=== PATIENT | male | born 1960 | race Caucasian/White ===

== ENCOUNTER 2019-04-01 15:44 | Observation (INO) | payer BC, OTHER ==
[2019-04-01] MEDS ORDERED: FEVERALL 650 MG PR PRN (16:29)
[2019-04-01] MEDS ORDERED: Sodium Chloride 0.9% 1000 ML 1,000 ML IV STA ×2 (16:29→20:05)
[2019-04-01] MEDS ORDERED: NOVOLIN R INSULIN (FOR DRIPS)** 100 UNITS in Sodium Chloride 0.9% 100 ML IVPB 100 ML IV PRN (16:33)
[2019-04-01 16:54] LABS: Hematocrit 39.2 % (42-50); Hemoglobin 13.5 gm/dl (12.5-18.0); Mean Cell Volume 92.2 fl (78-100); Mean Corpuscular Hemoglobin 31.8 pg (26-32); Mean Corpuscular Hgb Concent. 34.4 g/dl (32-36); Mean Platelet Volume 13.9 fl (7.5-11.0); Red Blood Count 4.25 M/mm3 (4.1-5.6); Red Cell Distribution Width 12.9 % (11.5-14.0); White Blood Count 7.8 K/mm3 (4.0-10.5)
[2019-04-01 17:07] LABS: ALBUMIN 4.3 g/dL (3.5-5.0); ANION GAP 20.7 MEQ/L (5-15); Calcium 9.6 mg/dL (8.4-10.2); Creatinine 1 1.7 mg/dL (0.66-1.25); Direct Bilirubin 0.3 mg/dL (0.0-0.4); MAGNESIUM 1.7 mg/dL (1.6-2.3); PHOSPHOROUS 4.6 mg/dL (2.5-4.5); Potassium 5.1 mmol/L (3.5-5.1); Total Protein 7.8 g/dL (6.3-8.2)
[2019-04-01 17:10] LABS: Platelet Count 89 K/mm3 (150-450)
[2019-04-01 18:09] LABS: Appearance CLEAR (CLEAR); Bilirubin NEGATIVE (NEGATIVE); Blood NEGATIVE Ery/ul (0-5); Glucose >=500 mg/dL (NEGATIVE); Ketones NEGATIVE (NEGATIVE); Leukocyte Esterase NEGATIVE (NEGATIVE); Nitrite NEGATIVE (NEGATIVE); Protein,Urine Dip NEGATIVE (Negative); Specific Gravity 1.021 (1.005-1.025); Urobilinogen NEGATIVE mg/dL (0-1)
[2019-04-01] MEDS ORDERED: Sodium Chloride 0.9% 1000 ML 1,000 ML IV SCH (18:45)
[2019-04-01] MEDS: Coreg 6.25 MG PO SCH (21:59)
[2019-04-01] MEDS: NEURONTIN 300 MG PO SCH (22:00)
[2019-04-01] MEDS ORDERED: ZOCOR 20MG PO SCH (22:00)
[2019-04-01] MEDS ORDERED: NON-FORMULARY ITEM (Apixaban [Eliquis] 5 MG) PO SCH (22:00)
[2019-04-01] MEDS: ELIQUIS 2.5 MG TABLET PO SCH (22:00)
[2019-04-01] MEDS ORDERED: TYLENOL 325 MG PO PRN (22:05)
--- NOTE | 2019-04-01 22:06 | XRAY ---
Indication: Weakness. Elevated blood sugar. Comparison: July 23, 2007. PA/lateral chest again demonstrates cardiomegaly with new left-sided single lead pacemaker. Lungs again demonstrates a few right lung calcified granulomas. No focal infiltrate, consolidation, or large effusion. Bony thorax again demonstrates mild osteopenia and degenerative changes. Interval left shoulder arthroplasty and old distal left humerus fracture. Impression: Nonacute chest with chronic features. Comment: Preliminary interpretation was made by [facility]. No critical discrepancy.
[2019-04-02 01:10] LABS: ANION GAP 13.3 MEQ/L (5-15); Creatinine 1 1.77 mg/dL (0.66-1.25); Potassium 4.3 mmol/L (3.5-5.1)
[2019-04-02] MEDS ORDERED: D5W/0.45NS W/ 20mEq KCl 1000 ML 1,000 ML IV SCH (01:30)
[2019-04-02] MEDS ORDERED: Lantus Insulin SQ ONE ×2 (01:30→10:00)
[2019-04-02] MEDS ORDERED: HUMALOG SQ PRN (01:36)
--- NOTE | 2019-04-02 07:52 | PCM.HP.ADD ---
Addendum to History & Physical - History & Physical Addendum Addendum to History & Physical: This certifies that the History & Physical in the electronic chart reflects the current health status of the patient. If there are changes in the H&P these changes/exceptions are listed as follows.
--- NOTE | 2019-04-02 08:00 | PCM.NOTE ---
Date and Time: 04/02/19 0759 Subjective Assessment: doing better - Review of Systems Constitutional: No Fever, No Chills Eyes: No Symptoms Ears, Nose, & Throat: No Symptoms Respiratory: No Cough, No Short Of Breath Cardiac: No Chest Pain, No Edema, No Syncope Abdominal/Gastrointestinal: No Abdominal Pain, No Nausea, No Vomiting, No Diarrhea Genitourinary Symptoms: No Dysuria Musculoskeletal: No Back Pain, No Neck Pain Skin: No Rash Neurological: No Dizziness, No Focal Weakness, No Sensory Changes Psychological: No Symptoms Endocrine: No Symptoms Hematologic/Lymphatic: No Symptoms Immunological/Allergic: No Symptoms Objective Exam General Appearance: no apparent distress, alert Neurologic Exam: alert, oriented x 3, cooperative, normal mood/affect, nml cerebellar function, sensation nml, No motor deficits Skin Exam: normal color, warm, dry Eye Exam: PERRL, EOMI, eyes nml inspection Ears, Nose, Throat Exam: normal ENT inspection, pharynx normal, moist mucous membranes Neck Exam: normal inspection, non-tender, supple, full range of motion Respiratory Exam: normal breath sounds, lungs clear, No respiratory distress Cardiovascular Exam: regular rate/rhythm, normal heart sounds Gastrointestinal/Abdomen Exam: soft, No tenderness, No mass Extremity Exam: normal inspection, normal range of motion Back Exam: normal inspection, normal range of motion, No CVA tenderness, No vertebral tenderness Male Genitalia Exam: deferred Rectal Exam: deferred OBJECTIVE DATA Vital Signs: Vital Signs - 24 hr Temp Pulse Resp BP Pulse Ox 04/02/19 07:10 97.8 F 82 20 96/69 82 L 04/02/19 04:00 98.2 F 72 13 112/93 99 04/02/19 02:56 98 04/02/19 00:06 97.7 F 64 14 92/56 95 04/01/19 23:55 66 04/01/19 21:00 70 95/64 04/01/19 20:46 77 16 98 04/01/19 20:43 98 04/01/19 20:00 97.4 F 74 14 70/58 95 04/01/19 17:32 97.7 F 77 15 126/86 97 04/01/19 17:14 94 L Pain Assessment - Last Documented Pain Intensity 0 Pain Scale Used 0-10 Pain Scale,FLACC Intake and Output: Intake & Output 03/30/19 03/31/19 04/01/19 04/02/19 11:59 11:59 11:59 11:59 Intake Total 3806 Output Total 1300 Balance 2506 Weight 160.7 kg Lab Results: Accuchecks Date 04/02/19 Time 03:59 Accucheck Value: 154 Lab Results-Last 24 Hours 04/01/19 04/01/19 04/01/19 Range/Units 16:45 16:45 16:45 WBC 7.8 (4.0-10.5) K/mm3 RBC 4.25 (4.1-5.6) M/mm3 Hgb 13.5 (12.5-18.0) gm/dl Hct 39.2 L (42-50) % MCV 92.2 (78-100) fl MCH 31.8 (26-32) pg MCHC 34.4 (32-36) g/dl RDW 12.9 (11.5-14.0) % Plt Count 89 L (150-450) K/mm3 MPV 13.9 H (7.5-11.0) fl Sodium 128 L (137-145) mmol/L Potassium 5.1 (3.5-5.1) mmol/L Chloride 89 L (98-107) mmol/L Carbon Dioxide 24 (22-30) mmol/L Anion Gap 20.7 H (5-15) MEQ/L BUN 42 H (9-20) mg/dL Creatinine 1.70 H (0.66-1.25) mg/dL Estimated GFR 44.4 ML/MIN Glucose 696 H* 696 H* (74-106) mg/dL Hemoglobin A1c (4.5-6.0) % Calcium 9.6 (8.4-10.2) mg/dL Phosphorus 4.6 H (2.5-4.5) mg/dL Magnesium 1.7 (1.6-2.3) mg/dL Total Bilirubin 2.00 H (0.2-1.3) mg/dL Direct Bilirubin 0.3 (0.0-0.4) mg/dL AST 18 (17-59) U/L ALT 14 (0-50) U/L Alkaline Phosphatase 105 (38-126) U/L Serum Total Protein 7.8 (6.3-8.2) g/dL Albumin 4.3 (3.5-5.0) g/dL Urine Color (YELLOW) Urine Appearance (CLEAR) Urine pH (5-6) Ur Specific [place] (1.005-1.025) Urine Protein (Negative) Urine Ketones (NEGATIVE) Urine Blood (0-5) Bipin/ul Urine Nitrite (NEGATIVE) Urine Bilirubin (NEGATIVE) Urine Urobilinogen (0-1) mg/dL Ur Leukocyte Esterase (NEGATIVE) Urine WBC (Auto) (0-5) /HPF Urine RBC (Auto) (0-2) /HPF U Epithel Cells (Auto) (FEW) /HPF Urine Bacteria (Auto) (NEGATIVE) /HPF Urine Culture Reflexed (NO) Urine Glucose (NEGATIVE) mg/dL 04/01/19 04/01/19 04/01/19 Range/Units 16:45 18:03 18:12 WBC (4.0-10.5) K/mm3 RBC (4.1-5.6) M/mm3 Hgb (12.5-18.0) gm/dl Hct (42-50) % MCV (78-100) fl MCH (26-32) pg MCHC (32-36) g/dl RDW (11.5-14.0) % Plt Count (150-450) K/mm3 MPV (7.5-11.0) fl Sodium (137-145) mmol/L Potassium (3.5-5.1) mmol/L Chloride (98-107) mmol/L Carbon Dioxide (22-30) mmol/L Anion Gap (5-15) MEQ/L BUN (9-20) mg/dL Creatinine (0.66-1.25) mg/dL Estimated GFR ML/MIN Glucose 619 H* (74-106) mg/dL Hemoglobin A1c > 14.00 H (4.5-6.0) % Calcium (8.4-10.2) mg/dL Phosphorus (2.5-4.5) mg/dL Magnesium (1.6-2.3) mg/dL Total Bilirubin (0.2-1.3) mg/dL Direct Bilirubin (0.0-0.4) mg/dL AST (17-59) U/L ALT (0-50) U/L Alkaline Phosphatase (38-126) U/L Serum Total Protein (6.3-8.2) g/dL Albumin (3.5-5.0) g/dL Urine Color STRAW (YELLOW) Urine Appearance CLEAR (CLEAR) Urine pH 5.0 (5-6) Ur Specific [place] 1.021 (1.005-1.025) Urine Protein NEGATIVE (Negative) Urine Ketones NEGATIVE (NEGATIVE) Urine Blood NEGATIVE (0-5) Bipin/ul Urine Nitrite NEGATIVE (NEGATIVE) Urine Bilirubin NEGATIVE (NEGATIVE) Urine Urobilinogen NEGATIVE (0-1) mg/dL Ur Leukocyte Esterase NEGATIVE (NEGATIVE) Urine WBC (Auto) NONE (0-5) /HPF Urine RBC (Auto) NONE (0-2) /HPF U Epithel Cells (Auto) NONE (FEW) /HPF Urine Bacteria (Auto) NONE (NEGATIVE) /HPF Urine Culture Reflexed NO (NO) Urine Glucose >=500 (NEGATIVE) mg/dL 04/01/19 04/01/19 04/01/19 Range/Units 19:09 20:12 21:02 WBC (4.0-10.5) K/mm3 RBC (4.1-5.6) M/mm3 Hgb (12.5-18.0) gm/dl Hct (42-50) % MCV (78-100) fl MCH (26-32) pg MCHC (32-36) g/dl RDW (11.5-14.0) % Plt Count (150-450) K/mm3 MPV (7.5-11.0) fl Sodium (137-145) mmol/L Potassium (3.5-5.1) mmol/L Chloride (98-107) mmol/L Carbon Dioxide (22-30) mmol/L Anion Gap (5-15) MEQ/L BUN (9-20) mg/dL Creatinine (0.66-1.25) mg/dL Estimated GFR ML/MIN Glucose 513 H* 374 H 259 H (74-106) mg/dL Hemoglobin A1c (4.5-6.0) % Calcium (8.4-10.2) mg/dL Phosphorus (2.5-4.5) mg/dL Magnesium (1.6-2.3) mg/dL Total Bilirubin (0.2-1.3) mg/dL Direct Bilirubin (0.0-0.4) mg/dL AST (17-59) U/L ALT (0-50) U/L Alkaline Phosphatase (38-126) U/L Serum Total Protein (6.3-8.2) g/dL Albumin (3.5-5.0) g/dL Urine Color (YELLOW) Urine Appearance (CLEAR) Urine pH (5-6) Ur Specific [place] (1.005-1.025) Urine Protein (Negative) Urine Ketones (NEGATIVE) Urine Blood (0-5) Bipin/ul Urine Nitrite (NEGATIVE) Urine Bilirubin (NEGATIVE) Urine Urobilinogen (0-1) mg/dL Ur Leukocyte Esterase (NEGATIVE) Urine WBC (Auto) (0-5) /HPF Urine RBC (Auto) (0-2) /HPF U Epithel Cells (Auto) (FEW) /HPF Urine Bacteria (Auto) (NEGATIVE) /HPF Urine Culture Reflexed (NO) Urine Glucose (NEGATIVE) mg/dL 04/01/19 04/01/19 04/02/19 Range/Units 22:00 23:10 00:56 WBC (4.0-10.5) K/mm3 RBC (4.1-5.6) M/mm3 Hgb (12.5-18.0) gm/dl Hct (42-50) % MCV (78-100) fl MCH (26-32) pg MCHC (32-36) g/dl RDW (11.5-14.0) % Plt Count (150-450) K/mm3 MPV (7.5-11.0) fl Sodium 132 L (137-145) mmol/L Potassium 4.3 (3.5-5.1) mmol/L Chloride 96 L (98-107) mmol/L Carbon Dioxide 26 (22-30) mmol/L Anion Gap 13.3 (5-15) MEQ/L BUN 43 H (9-20) mg/dL Creatinine 1.77 H (0.66-1.25) mg/dL Estimated GFR 42.4 ML/MIN Glucose 278 H 292 H 245 H (74-106) mg/dL Hemoglobin A1c (4.5-6.0) % Calcium 9.0 (8.4-10.2) mg/dL Phosphorus (2.5-4.5) mg/dL Magnesium (1.6-2.3) mg/dL Total Bilirubin (0.2-1.3) mg/dL Direct Bilirubin (0.0-0.4) mg/dL AST (17-59) U/L ALT (0-50) U/L Alkaline Phosphatase (38-126) U/L Serum Total Protein (6.3-8.2) g/dL Albumin (3.5-5.0) g/dL Urine Color (YELLOW) Urine Appearance (CLEAR) Urine pH (5-6) Ur Specific [place] (1.005-1.025) Urine Protein (Negative) Urine Ketones (NEGATIVE) Urine Blood (0-5) Bipin/ul Urine Nitrite (NEGATIVE) Urine Bilirubin (NEGATIVE) Urine Urobilinogen (0-1) mg/dL Ur Leukocyte Esterase (NEGATIVE) Urine WBC (Auto) (0-5) /HPF Urine RBC (Auto) (0-2) /HPF U Epithel Cells (Auto) (FEW) /HPF Urine Bacteria (Auto) (NEGATIVE) /HPF Urine Culture Reflexed (NO) Urine Glucose (NEGATIVE) mg/dL 04/02/19 04/02/19 Range/Units 02:13 03:25 WBC (4.0-10.5) K/mm3 RBC (4.1-5.6) M/mm3 Hgb (12.5-18.0) gm/dl Hct (42-50) % MCV (78-100) fl MCH (26-32) pg MCHC (32-36) g/dl RDW (11.5-14.0) % Plt Count (150-450) K/mm3 MPV (7.5-11.0) fl Sodium (137-145) mmol/L Potassium (3.5-5.1) mmol/L Chloride (98-107) mmol/L Carbon Dioxide (22-30) mmol/L Anion Gap (5-15) MEQ/L BUN (9-20) mg/dL Creatinine (0.66-1.25) mg/dL Estimated GFR ML/MIN Glucose 179 H 135 H (74-106) mg/dL Hemoglobin A1c (4.5-6.0) % Calcium (8.4-10.2) mg/dL Phosphorus (2.5-4.5) mg/dL Magnesium (1.6-2.3) mg/dL Total Bilirubin (0.2-1.3) mg/dL Direct Bilirubin (0.0-0.4) mg/dL AST (17-59) U/L ALT (0-50) U/L Alkaline Phosphatase (38-126) U/L Serum Total Protein (6.3-8.2) g/dL Albumin (3.5-5.0) g/dL Urine Color (YELLOW) Urine Appearance (CLEAR) Urine pH (5-6) Ur Specific [place] (1.005-1.025) Urine Protein (Negative) Urine Ketones (NEGATIVE) Urine Blood (0-5) Bipin/ul Urine Nitrite (NEGATIVE) Urine Bilirubin (NEGATIVE) Urine Urobilinogen (0-1) mg/dL Ur Leukocyte Esterase (NEGATIVE) Urine WBC (Auto) (0-5) /HPF Urine RBC (Auto) (0-2) /HPF U Epithel Cells (Auto) (FEW) /HPF Urine Bacteria (Auto) (NEGATIVE) /HPF Urine Culture Reflexed (NO) Urine Glucose (NEGATIVE) mg/dL Radiology Exams: Radiology Procedures Category Date Time Status CHEST 2 VIEWS (PA AND LAT) Stat Exams 04/01/19 19:10 Completed Assessment/Plan (1) Diabetic hyperosmolar non-ketotic state Current Visit: Yes Status: Acute Assessment & Plan: Last Vital Signs Temp 97.8 F 04/02/19 07:10 Pulse 82 04/02/19 07:10 Resp 20 04/02/19 07:10 BP 96/69 04/02/19 07:10 Pulse Ox 82 L 04/02/19 07:10 Allergies No Known Drug Allergies Allergy (Unverified 11/19/13 18:09) Active Medications Acetaminophen (Feverall 650 Mg) 650 mg NE Q4H PRN PRN PRN Reason: PAIN AND/OR FEVER Stop: 05/01/19 16:28 Acetaminophen (Tylenol 325 Mg) 650 mg PO Q4H PRN PRN PRN Reason: PAIN AND/OR FEVER Stop: 05/01/19 22:04 Last Admin: 04/01/19 22:07 Dose: 650 mg Amlodipine Besylate (Norvasc 5 Mg) 2.5 mg PO QAM [facility] Stop: 05/02/19 09:59 Apixaban (Eliquis 2.5 Mg Tablet) 5 mg PO BID [facility] Stop: 05/01/19 21:59 Last Admin: 04/01/19 22:00 Dose: 5 mg Carvedilol (Coreg 6.25 Mg) 6.25 mg PO BID [facility] Stop: 05/01/19 21:59 Last Admin: 04/01/19 21:59 Dose: Not Given Ergocalciferol (Vitamin D2) 50,000 unit PO Q7D [facility] Stop: 05/03/19 09:59 Gabapentin (Neurontin 300 Mg) 300 mg PO TID [facility] Stop: 05/01/19 21:59 Last Admin: 04/01/19 22:00 Dose: Not Given Hydrochlorothiazide (Hydrodiuril 25 Mg) 25 mg PO DAILY [facility] Stop: 05/02/19 09:59 Insulin Human Regular 100 (units/ Sodium Chloride) 101 mls @ 16.23 mls/hr IV .Q6H14M PRN; Protocol PRN Reason: DKA/HYPERGYCEMIA Stop: 05/01/19 16:32 Last Titration: 04/02/19 03:58 Dose: 0 units/kg/hr, 0 mls/hr Potassium Chloride/Dextrose/Sod Cl (D5w/0.45ns W/ 20meq Kcl 1000 Ml) 1,000 mls @ 150 mls/hr IV .Q6H40M [facility] Stop: 05/02/19 01:29 Last Admin: 04/02/19 01:29 Dose: 150 mls/hr Insulin Human Lispro (Humalog) 0 unit SQ UD PRN PRN Reason: HYPERGLYCEMIA Stop: 05/02/19 01:35 Lisinopril (Zestril 20 Mg) 40 mg PO DAILY [facility] Stop: 05/02/19 09:59 Simvastatin (Zocor 20mg) 20 mg PO HS [facility] Stop: 05/01/19 21:59 Last Admin: 04/01/19 22:01 Dose: 20 mg Sitagliptin Phosphate (Januvia 50 Mg) 100 mg PO DAILY [facility] Stop: 05/02/19 09:59 Intake & Output 04/01/19 04/02/19 11:59 11:59 Intake Total 3806 Output Total 1300 Balance 2506 Weight 160.7 kg Orders 04/01/19 16:27 Oxygen Oxymizer LPM 2 lpm 04/01/19 16:29 Place in Observation ROUTINE Acetaminophen 650 mg [Feverall 650 mg] 650 mg NE Q4H PRN PRN 04/01/19 16:32 Up Ad Huyen TOLERATED 04/01/19 16:33 NaCl 0.9% 100Ml [Sodium Chloride 0.9% 100 ML IVPB] 100 ml Insulin Reg Human Rec [Novolin R Insulin (For Drips)] 100 units IV 0.1 units/kg/hr 04/01/19 17:14 Pulse Oximetry .continuos 04/01/19 18:22 Dragger Out/Discharge Plan Nutritional Admission Screen 04/01/19 20:45 Respiratory Therapy Assessment ONCE 04/01/19 22:00 Apixaban [Eliquis 2.5 mg Tablet] 5 mg PO BID Carvedilol 6.25 mg [Coreg 6.25 MG] 6.25 mg PO BID Gabapentin 300 mg [Neurontin 300 mg] 300 mg PO TID Simvastatin 20Mg [Zocor 20Mg] 20 mg PO HS 04/01/19 22:05 Acetaminophen 325 mg [Tylenol 325 mg] 650 mg PO Q4H PRN PRN 04/01/19 Dinner 1800 Calorie ADA 04/02/19 10:00 Amlodipine Besylate 5 mg [Norvasc 5 mg] 2.5 mg PO QAM Hydrochlorothiazide 25 mg [hydroDIURIL 25 MG] 25 mg PO DAILY Lisinopril 20 mg [Zestril 20 MG] 40 mg PO DAILY Sitagliptin Phosphate 50 MG [Januvia 50 MG] 100 mg PO DAILY 04/03/19 10:00 Ergocalciferol (Vitamin D2) [Vitamin D2] 50,000 unit PO Q7D Lab Tests 04/01/19 04/01/19 04/01/19 16:45 16:45 16:45 WBC 7.8 RBC 4.25 Hgb 13.5 Hct 39.2 L MCV 92.2 MCH 31.8 MCHC 34.4 RDW 12.9 Plt Count 89 L MPV 13.9 H Sodium 128 L Potassium 5.1 Chloride 89 L Carbon Dioxide 24 Anion Gap 20.7 H BUN 42 H Creatinine 1.70 H Estimated GFR 44.4 Glucose 696 H* 696 H* Hemoglobin A1c Calcium 9.6 Phosphorus 4.6 H Magnesium 1.7 Total Bilirubin 2.00 H Direct Bilirubin 0.3 AST 18 ALT 14 Alkaline Phosphatase 105 Serum Total Protein 7.8 Albumin 4.3 Urine Color Urine Appearance Urine pH Ur Specific [place] Urine Protein Urine Ketones Urine Blood Urine Nitrite Urine Bilirubin Urine Urobilinogen Ur Leukocyte Esterase Urine WBC (Auto) Urine RBC (Auto) U Epithel Cells (Auto) Urine Bacteria (Auto) Urine Culture Reflexed Urine Glucose 04/01/19 04/01/19 04/01/19 16:45 18:03 18:12 WBC RBC Hgb Hct MCV MCH MCHC RDW Plt Count MPV Sodium Potassium Chloride Carbon Dioxide Anion Gap BUN Creatinine Estimated GFR Glucose 619 H* Hemoglobin A1c > 14.00 H Calcium Phosphorus Magnesium Total Bilirubin Direct Bilirubin AST ALT Alkaline Phosphatase Serum Total Protein Albumin Urine Color STRAW Urine Appearance CLEAR Urine pH 5.0 Ur Specific [place] 1.021 Urine Protein NEGATIVE Urine Ketones NEGATIVE Urine Blood NEGATIVE Urine Nitrite NEGATIVE Urine Bilirubin NEGATIVE Urine Urobilinogen NEGATIVE Ur Leukocyte Esterase NEGATIVE Urine WBC (Auto) NONE Urine RBC (Auto) NONE U Epithel Cells (Auto) NONE Urine Bacteria (Auto) NONE Urine Culture Reflexed NO Urine Glucose >=500 04/01/19 04/01/19 04/01/19 19:09 20:12 21:02 WBC RBC Hgb Hct MCV MCH MCHC RDW Plt Count MPV Sodium Potassium Chloride Carbon Dioxide Anion Gap BUN Creatinine Estimated GFR Glucose 513 H* 374 H 259 H Hemoglobin A1c Calcium Phosphorus Magnesium Total Bilirubin Direct Bilirubin AST ALT Alkaline Phosphatase Serum Total Protein Albumin Urine Color Urine Appearance Urine pH Ur Specific [place] Urine Protein Urine Ketones Urine Blood Urine Nitrite Urine Bilirubin Urine Urobilinogen Ur Leukocyte Esterase Urine WBC (Auto) Urine RBC (Auto) U Epithel Cells (Auto) Urine Bacteria (Auto) Urine Culture Reflexed Urine Glucose 04/01/19 04/01/19 04/02/19 22:00 23:10 00:56 WBC RBC Hgb Hct MCV MCH MCHC RDW Plt Count MPV Sodium 132 L Potassium 4.3 Chloride 96 L Carbon Dioxide 26 Anion Gap 13.3 BUN 43 H Creatinine 1.77 H Estimated GFR 42.4 Glucose 278 H 292 H 245 H Hemoglobin A1c Calcium 9.0 Phosphorus Magnesium Total Bilirubin Direct Bilirubin AST ALT Alkaline Phosphatase Serum Total Protein Albumin Urine Color Urine Appearance Urine pH Ur Specific [place] Urine Protein Urine Ketones Urine Blood Urine Nitrite Urine Bilirubin Urine Urobilinogen Ur Leukocyte Esterase Urine WBC (Auto) Urine RBC (Auto) U Epithel Cells (Auto) Urine Bacteria (Auto) Urine Culture Reflexed Urine Glucose 04/02/19 04/02/19 02:13 03:25 WBC RBC Hgb Hct MCV MCH MCHC RDW Plt Count MPV Sodium Potassium Chloride Carbon Dioxide Anion Gap BUN Creatinine Estimated GFR Glucose 179 H 135 H Hemoglobin A1c Calcium Phosphorus Magnesium Total Bilirubin Direct Bilirubin AST ALT Alkaline Phosphatase Serum Total Protein Albumin Urine Color Urine Appearance Urine pH Ur Specific [place] Urine Protein Urine Ketones Urine Blood Urine Nitrite Urine Bilirubin Urine Urobilinogen Ur Leukocyte Esterase Urine WBC (Auto) Urine RBC (Auto) U Epithel Cells (Auto) Urine Bacteria (Auto) Urine Culture Reflexed Urine Glucose Code(s): E11.00 - TYPE 2 DIAB W HYPROSM W/O NONKET HYPRGLY-HYPROS COMA [facility]) (2) Diabetes mellitus type 2 Current Visit: Yes Status: Chronic Code(s): E11.9 - TYPE 2 DIABETES MELLITUS WITHOUT COMPLICATIONS (3) Hyperglycemia Current Visit: Yes Status: Acute Code(s): R73.9 - HYPERGLYCEMIA, UNSPECIFIED
[2019-04-02 08:04] VITALS: PULSE 75
--- NOTE | 2019-04-02 08:32 | PCM.DS ---
Discharge Summary Date of Admission: 04/01/19 16:12 Admitting Physician: REYNA JACOBS Primary Care Provider: REYNA JACOBS Allergies Allergies No Known Drug Allergies Allergy (Unverified 11/19/13 18:09) Hospital Summary - Hospital Course Hospital Course: Last Vital Signs Temp 97.8 F 04/02/19 07:10 Pulse 75 04/02/19 07:53 Resp 20 04/02/19 07:10 BP 96/69 04/02/19 07:10 Pulse Ox 82 L 04/02/19 07:10 Allergies No Known Drug Allergies Allergy (Unverified 11/19/13 18:09) Active Medications Acetaminophen (Feverall 650 Mg) 650 mg [place] Q4H PRN PRN PRN Reason: PAIN AND/OR FEVER Stop: 05/01/19 16:28 Acetaminophen (Tylenol 325 Mg) 650 mg PO Q4H PRN PRN PRN Reason: PAIN AND/OR FEVER Stop: 05/01/19 22:04 Last Admin: 04/01/19 22:07 Dose: 650 mg Amlodipine Besylate (Norvasc 5 Mg) 2.5 mg PO QAM [facility] Stop: 05/02/19 09:59 Apixaban (Eliquis 2.5 Mg Tablet) 5 mg PO BID [facility] Stop: 05/01/19 21:59 Last Admin: 04/01/19 22:00 Dose: 5 mg Carvedilol (Coreg 6.25 Mg) 6.25 mg PO BID [facility] Stop: 05/01/19 21:59 Last Admin: 04/01/19 21:59 Dose: Not Given Ergocalciferol (Vitamin D2) 50,000 unit PO Q7D [facility] Stop: 05/03/19 09:59 Gabapentin (Neurontin 300 Mg) 300 mg PO TID [facility] Stop: 05/01/19 21:59 Last Admin: 04/01/19 22:00 Dose: Not Given Hydrochlorothiazide (Hydrodiuril 25 Mg) 25 mg PO DAILY [facility] Stop: 05/02/19 09:59 Insulin Human Regular 100 (units/ Sodium Chloride) 101 mls @ 16.23 mls/hr IV .Q6H14M PRN; Protocol PRN Reason: DKA/HYPERGYCEMIA Stop: 05/01/19 16:32 Last Titration: 04/02/19 03:58 Dose: 0 units/kg/hr, 0 mls/hr Potassium Chloride/Dextrose/Sod Cl (D5w/0.45ns W/ 20meq Kcl 1000 Ml) 1,000 mls @ 150 mls/hr IV .Q6H40M [facility] Stop: 05/02/19 01:29 Last Admin: 04/02/19 01:29 Dose: 150 mls/hr Insulin Human Lispro (Humalog) 0 unit SQ UD PRN PRN Reason: HYPERGLYCEMIA Stop: 05/02/19 01:35 Lisinopril (Zestril 20 Mg) 40 mg PO DAILY [facility] Stop: 05/02/19 09:59 Simvastatin (Zocor 20mg) 20 mg PO HS [facility] Stop: 05/01/19 21:59 Last Admin: 04/01/19 22:01 Dose: 20 mg Sitagliptin Phosphate (Januvia 50 Mg) 100 mg PO DAILY [facility] Stop: 05/02/19 09:59 Intake & Output 04/01/19 04/02/19 11:59 11:59 Intake Total 3806 Output Total 1300 Balance 2506 Weight 160.7 kg Orders 04/01/19 16:27 Oxygen Oxymizer LPM 2 lpm 04/01/19 16:29 Place in Observation ROUTINE Acetaminophen 650 mg [Feverall 650 mg] 650 mg [place] Q4H PRN PRN 04/01/19 16:32 Up Ad Huyen TOLERATED 04/01/19 16:33 NaCl 0.9% 100Ml [Sodium Chloride 0.9% 100 ML IVPB] 100 ml Insulin Reg Human Rec [Novolin R Insulin (For Drips)] 100 units IV 0.1 units/kg/hr 04/01/19 17:14 Pulse Oximetry .continuos 04/01/19 18:22 Chicken And Fish Cleaner/Discharge Plan Nutritional Admission Screen 04/01/19 20:45 Respiratory Therapy Assessment ONCE 04/01/19 22:00 Apixaban [Eliquis 2.5 mg Tablet] 5 mg PO BID Carvedilol 6.25 mg [Coreg 6.25 MG] 6.25 mg PO BID Gabapentin 300 mg [Neurontin 300 mg] 300 mg PO TID Simvastatin 20Mg [Zocor 20Mg] 20 mg PO HS 04/01/19 22:05 Acetaminophen 325 mg [Tylenol 325 mg] 650 mg PO Q4H PRN PRN 04/01/19 Dinner 1800 Calorie ADA 04/02/19 10:00 Amlodipine Besylate 5 mg [Norvasc 5 mg] 2.5 mg PO QAM Hydrochlorothiazide 25 mg [hydroDIURIL 25 MG] 25 mg PO DAILY Lisinopril 20 mg [Zestril 20 MG] 40 mg PO DAILY Sitagliptin Phosphate 50 MG [Januvia 50 MG] 100 mg PO DAILY 04/03/19 10:00 Ergocalciferol (Vitamin D2) [Vitamin D2] 50,000 unit PO Q7D Lab Tests 04/01/19 04/01/19 04/01/19 16:45 16:45 16:45 WBC 7.8 RBC 4.25 Hgb 13.5 Hct 39.2 L MCV 92.2 MCH 31.8 MCHC 34.4 RDW 12.9 Plt Count 89 L MPV 13.9 H Sodium 128 L Potassium 5.1 Chloride 89 L Carbon Dioxide 24 Anion Gap 20.7 H BUN 42 H Creatinine 1.70 H Estimated GFR 44.4 Glucose 696 H* 696 H* Hemoglobin A1c Calcium 9.6 Phosphorus 4.6 H Magnesium 1.7 Total Bilirubin 2.00 H Direct Bilirubin 0.3 AST 18 ALT 14 Alkaline Phosphatase 105 Serum Total Protein 7.8 Albumin 4.3 Urine Color Urine Appearance Urine pH Ur Specific Bishop Urine Protein Urine Ketones Urine Blood Urine Nitrite Urine Bilirubin Urine Urobilinogen Ur Leukocyte Esterase Urine WBC (Auto) Urine RBC (Auto) U Epithel Cells (Auto) Urine Bacteria (Auto) Urine Culture Reflexed Urine Glucose 04/01/19 04/01/19 04/01/19 16:45 18:03 18:12 WBC RBC Hgb Hct MCV MCH MCHC RDW Plt Count MPV Sodium Potassium Chloride Carbon Dioxide Anion Gap BUN Creatinine Estimated GFR Glucose 619 H* Hemoglobin A1c > 14.00 H Calcium Phosphorus Magnesium Total Bilirubin Direct Bilirubin AST ALT Alkaline Phosphatase Serum Total Protein Albumin Urine Color STRAW Urine Appearance CLEAR Urine pH 5.0 Ur Specific Bishop 1.021 Urine Protein NEGATIVE Urine Ketones NEGATIVE Urine Blood NEGATIVE Urine Nitrite NEGATIVE Urine Bilirubin NEGATIVE Urine Urobilinogen NEGATIVE Ur Leukocyte Esterase NEGATIVE Urine WBC (Auto) NONE Urine RBC (Auto) NONE U Epithel Cells (Auto) NONE Urine Bacteria (Auto) NONE Urine Culture Reflexed NO Urine Glucose >=500 04/01/19 04/01/19 04/01/19 19:09 20:12 21:02 WBC RBC Hgb Hct MCV MCH MCHC RDW Plt Count MPV Sodium Potassium Chloride Carbon Dioxide Anion Gap BUN Creatinine Estimated GFR Glucose 513 H* 374 H 259 H Hemoglobin A1c Calcium Phosphorus Magnesium Total Bilirubin Direct Bilirubin AST ALT Alkaline Phosphatase Serum Total Protein Albumin Urine Color Urine Appearance Urine pH Ur Specific Bishop Urine Protein Urine Ketones Urine Blood Urine Nitrite Urine Bilirubin Urine Urobilinogen Ur Leukocyte Esterase Urine WBC (Auto) Urine RBC (Auto) U Epithel Cells (Auto) Urine Bacteria (Auto) Urine Culture Reflexed Urine Glucose 04/01/19 04/01/19 04/02/19 22:00 23:10 00:56 WBC RBC Hgb Hct MCV MCH MCHC RDW Plt Count MPV Sodium 132 L Potassium 4.3 Chloride 96 L Carbon Dioxide 26 Anion Gap 13.3 BUN 43 H Creatinine 1.77 H Estimated GFR 42.4 Glucose 278 H 292 H 245 H Hemoglobin A1c Calcium 9.0 Phosphorus Magnesium Total Bilirubin Direct Bilirubin AST ALT Alkaline Phosphatase Serum Total Protein Albumin Urine Color Urine Appearance Urine pH Ur Specific Bishop Urine Protein Urine Ketones Urine Blood Urine Nitrite Urine Bilirubin Urine Urobilinogen Ur Leukocyte Esterase Urine WBC (Auto) Urine RBC (Auto) U Epithel Cells (Auto) Urine Bacteria (Auto) Urine Culture Reflexed Urine Glucose 04/02/19 04/02/19 02:13 03:25 WBC RBC Hgb Hct MCV MCH MCHC RDW Plt Count MPV Sodium Potassium Chloride Carbon Dioxide Anion Gap BUN Creatinine Estimated GFR Glucose 179 H 135 H Hemoglobin A1c Calcium Phosphorus Magnesium Total Bilirubin Direct Bilirubin AST ALT Alkaline Phosphatase Serum Total Protein Albumin Urine Color Urine Appearance Urine pH Ur Specific Bishop Urine Protein Urine Ketones Urine Blood Urine Nitrite Urine Bilirubin Urine Urobilinogen Ur Leukocyte Esterase Urine WBC (Auto) Urine RBC (Auto) U Epithel Cells (Auto) Urine Bacteria (Auto) Urine Culture Reflexed Urine Glucose Patient is informed about insulin usage, as well as how to use Lantus Solostar pen. Patient's is also instructed and educated about use of insulin. - Vitals & Intake/Output Vital Signs: Vital Signs Temperature 97.8 F 04/02/19 07:10 Pulse Rate 75 04/02/19 07:53 Respiratory Rate 20 04/02/19 07:10 Blood Pressure 96/69 04/02/19 07:10 O2 Sat by Pulse Oximetry 82 L 04/02/19 07:10 Intake & Output: Intake & Output 03/30/19 03/31/19 04/01/19 04/02/19 11:59 11:59 11:59 11:59 Intake Total 3806 Output Total 1300 Balance 2506 Weight 160.7 kg - Lab Result Diagrams: 04/01/19 16:45 04/02/19 00:56 Lab Results-Last 24 Hrs: Accuchecks Date 04/02/19 Date 04/02/19 Time 08:05 Time 03:59 Accucheck Value: 360 Accucheck Value: 154 Lab Results-Last 24 Hours 04/01/19 04/01/19 04/01/19 Range/Units 16:45 16:45 16:45 WBC 7.8 (4.0-10.5) K/mm3 RBC 4.25 (4.1-5.6) M/mm3 Hgb 13.5 (12.5-18.0) gm/dl Hct 39.2 L (42-50) % MCV 92.2 (78-100) fl MCH 31.8 (26-32) pg MCHC 34.4 (32-36) g/dl RDW 12.9 (11.5-14.0) % Plt Count 89 L (150-450) K/mm3 MPV 13.9 H (7.5-11.0) fl Sodium 128 L (137-145) mmol/L Potassium 5.1 (3.5-5.1) mmol/L Chloride 89 L (98-107) mmol/L Carbon Dioxide 24 (22-30) mmol/L Anion Gap 20.7 H (5-15) MEQ/L BUN 42 H (9-20) mg/dL Creatinine 1.70 H (0.66-1.25) mg/dL Estimated GFR 44.4 ML/MIN Glucose 696 H* 696 H* (74-106) mg/dL Hemoglobin A1c (4.5-6.0) % Calcium 9.6 (8.4-10.2) mg/dL Phosphorus 4.6 H (2.5-4.5) mg/dL Magnesium 1.7 (1.6-2.3) mg/dL Total Bilirubin 2.00 H (0.2-1.3) mg/dL Direct Bilirubin 0.3 (0.0-0.4) mg/dL AST 18 (17-59) U/L ALT 14 (0-50) U/L Alkaline Phosphatase 105 (38-126) U/L Serum Total Protein 7.8 (6.3-8.2) g/dL Albumin 4.3 (3.5-5.0) g/dL Urine Color (YELLOW) Urine Appearance (CLEAR) Urine pH (5-6) Ur Specific Bishop (1.005-1.025) Urine Protein (Negative) Urine Ketones (NEGATIVE) Urine Blood (0-5) Bipin/ul Urine Nitrite (NEGATIVE) Urine Bilirubin (NEGATIVE) Urine Urobilinogen (0-1) mg/dL Ur Leukocyte Esterase (NEGATIVE) Urine WBC (Auto) (0-5) /HPF Urine RBC (Auto) (0-2) /HPF U Epithel Cells (Auto) (FEW) /HPF Urine Bacteria (Auto) (NEGATIVE) /HPF Urine Culture Reflexed (NO) Urine Glucose (NEGATIVE) mg/dL 04/01/19 04/01/19 04/01/19 Range/Units 16:45 18:03 18:12 WBC (4.0-10.5) K/mm3 RBC (4.1-5.6) M/mm3 Hgb (12.5-18.0) gm/dl Hct (42-50) % MCV (78-100) fl MCH (26-32) pg MCHC (32-36) g/dl RDW (11.5-14.0) % Plt Count (150-450) K/mm3 MPV (7.5-11.0) fl Sodium (137-145) mmol/L Potassium (3.5-5.1) mmol/L Chloride (98-107) mmol/L Carbon Dioxide (22-30) mmol/L Anion Gap (5-15) MEQ/L BUN (9-20) mg/dL Creatinine (0.66-1.25) mg/dL Estimated GFR ML/MIN Glucose 619 H* (74-106) mg/dL Hemoglobin A1c > 14.00 H (4.5-6.0) % Calcium (8.4-10.2) mg/dL Phosphorus (2.5-4.5) mg/dL Magnesium (1.6-2.3) mg/dL Total Bilirubin (0.2-1.3) mg/dL Direct Bilirubin (0.0-0.4) mg/dL AST (17-59) U/L ALT (0-50) U/L Alkaline Phosphatase (38-126) U/L Serum Total Protein (6.3-8.2) g/dL Albumin (3.5-5.0) g/dL Urine Color STRAW (YELLOW) Urine Appearance CLEAR (CLEAR) Urine pH 5.0 (5-6) Ur Specific Bishop 1.021 (1.005-1.025) Urine Protein NEGATIVE (Negative) Urine Ketones NEGATIVE (NEGATIVE) Urine Blood NEGATIVE (0-5) Ibpin/ul Urine Nitrite NEGATIVE (NEGATIVE) Urine Bilirubin NEGATIVE (NEGATIVE) Urine Urobilinogen NEGATIVE (0-1) mg/dL Ur Leukocyte Esterase NEGATIVE (NEGATIVE) Urine WBC (Auto) NONE (0-5) /HPF Urine RBC (Auto) NONE (0-2) /HPF U Epithel Cells (Auto) NONE (FEW) /HPF Urine Bacteria (Auto) NONE (NEGATIVE) /HPF Urine Culture Reflexed NO (NO) Urine Glucose >=500 (NEGATIVE) mg/dL 04/01/19 04/01/19 04/01/19 Range/Units 19:09 20:12 21:02 WBC (4.0-10.5) K/mm3 RBC (4.1-5.6) M/mm3 Hgb (12.5-18.0) gm/dl Hct (42-50) % MCV (78-100) fl MCH (26-32) pg MCHC (32-36) g/dl RDW (11.5-14.0) % Plt Count (150-450) K/mm3 MPV (7.5-11.0) fl Sodium (137-145) mmol/L Potassium (3.5-5.1) mmol/L Chloride (98-107) mmol/L Carbon Dioxide (22-30) mmol/L Anion Gap (5-15) MEQ/L BUN (9-20) mg/dL Creatinine (0.66-1.25) mg/dL Estimated GFR ML/MIN Glucose 513 H* 374 H 259 H (74-106) mg/dL Hemoglobin A1c (4.5-6.0) % Calcium (8.4-10.2) mg/dL Phosphorus (2.5-4.5) mg/dL Magnesium (1.6-2.3) mg/dL Total Bilirubin (0.2-1.3) mg/dL Direct Bilirubin (0.0-0.4) mg/dL AST (17-59) U/L ALT (0-50) U/L Alkaline Phosphatase (38-126) U/L Serum Total Protein (6.3-8.2) g/dL Albumin (3.5-5.0) g/dL Urine Color (YELLOW) Urine Appearance (CLEAR) Urine pH (5-6) Ur Specific Bishop (1.005-1.025) Urine Protein (Negative) Urine Ketones (NEGATIVE) Urine Blood (0-5) Bipin/ul Urine Nitrite (NEGATIVE) Urine Bilirubin (NEGATIVE) Urine Urobilinogen (0-1) mg/dL Ur Leukocyte Esterase (NEGATIVE) Urine WBC (Auto) (0-5) /HPF Urine RBC (Auto) (0-2) /HPF U Epithel Cells (Auto) (FEW) /HPF Urine Bacteria (Auto) (NEGATIVE) /HPF Urine Culture Reflexed (NO) Urine Glucose (NEGATIVE) mg/dL 04/01/19 04/01/19 04/02/19 Range/Units 22:00 23:10 00:56 WBC (4.0-10.5) K/mm3 RBC (4.1-5.6) M/mm3 Hgb (12.5-18.0) gm/dl Hct (42-50) % MCV (78-100) fl MCH (26-32) pg MCHC (32-36) g/dl RDW (11.5-14.0) % Plt Count (150-450) K/mm3 MPV (7.5-11.0) fl Sodium 132 L (137-145) mmol/L Potassium 4.3 (3.5-5.1) mmol/L Chloride 96 L (98-107) mmol/L Carbon Dioxide 26 (22-30) mmol/L Anion Gap 13.3 (5-15) MEQ/L BUN 43 H (9-20) mg/dL Creatinine 1.77 H (0.66-1.25) mg/dL Estimated GFR 42.4 ML/MIN Glucose 278 H 292 H 245 H (74-106) mg/dL Hemoglobin A1c (4.5-6.0) % Calcium 9.0 (8.4-10.2) mg/dL Phosphorus (2.5-4.5) mg/dL Magnesium (1.6-2.3) mg/dL Total Bilirubin (0.2-1.3) mg/dL Direct Bilirubin (0.0-0.4) mg/dL AST (17-59) U/L ALT (0-50) U/L Alkaline Phosphatase (38-126) U/L Serum Total Protein (6.3-8.2) g/dL Albumin (3.5-5.0) g/dL Urine Color (YELLOW) Urine Appearance (CLEAR) Urine pH (5-6) Ur Specific Bishop (1.005-1.025) Urine Protein (Negative) Urine Ketones (NEGATIVE) Urine Blood (0-5) Bipin/ul Urine Nitrite (NEGATIVE) Urine Bilirubin (NEGATIVE) Urine Urobilinogen (0-1) mg/dL Ur Leukocyte Esterase (NEGATIVE) Urine WBC (Auto) (0-5) /HPF Urine RBC (Auto) (0-2) /HPF U Epithel Cells (Auto) (FEW) /HPF Urine Bacteria (Auto) (NEGATIVE) /HPF Urine Culture Reflexed (NO) Urine Glucose (NEGATIVE) mg/dL 04/02/19 04/02/19 Range/Units 02:13 03:25 WBC (4.0-10.5) K/mm3 RBC (4.1-5.6) M/mm3 Hgb (12.5-18.0) gm/dl Hct (42-50) % MCV (78-100) fl MCH (26-32) pg MCHC (32-36) g/dl RDW (11.5-14.0) % Plt Count (150-450) K/mm3 MPV (7.5-11.0) fl Sodium (137-145) mmol/L Potassium (3.5-5.1) mmol/L Chloride (98-107) mmol/L Carbon Dioxide (22-30) mmol/L Anion Gap (5-15) MEQ/L BUN (9-20) mg/dL Creatinine (0.66-1.25) mg/dL Estimated GFR ML/MIN Glucose 179 H 135 H (74-106) mg/dL Hemoglobin A1c (4.5-6.0) % Calcium (8.4-10.2) mg/dL Phosphorus (2.5-4.5) mg/dL Magnesium (1.6-2.3) mg/dL Total Bilirubin (0.2-1.3) mg/dL Direct Bilirubin (0.0-0.4) mg/dL AST (17-59) U/L ALT (0-50) U/L Alkaline Phosphatase (38-126) U/L Serum Total Protein (6.3-8.2) g/dL Albumin (3.5-5.0) g/dL Urine Color (YELLOW) Urine Appearance (CLEAR) Urine pH (5-6) Ur Specific Bishop (1.005-1.025) Urine Protein (Negative) Urine Ketones (NEGATIVE) Urine Blood (0-5) Bipin/ul Urine Nitrite (NEGATIVE) Urine Bilirubin (NEGATIVE) Urine Urobilinogen (0-1) mg/dL Ur Leukocyte Esterase (NEGATIVE) Urine WBC (Auto) (0-5) /HPF Urine RBC (Auto) (0-2) /HPF U Epithel Cells (Auto) (FEW) /HPF Urine Bacteria (Auto) (NEGATIVE) /HPF Urine Culture Reflexed (NO) Urine Glucose (NEGATIVE) mg/dL Micro Results-Entire Visit: Accuchecks Date 04/02/19 Date 04/02/19 Time 08:05 Time 03:59 Accucheck Value: 360 Accucheck Value: 154 - Radiology Exams Ordered Rad Exams-Entire Visit: Radiology Procedures Category Date Time Status CHEST 2 VIEWS (PA AND LAT) Stat Exams 04/01/19 19:10 Completed - Procedures and Test Procedures and Tests throughout Hospitalization: Therapy Orders & Screens 04/01/19 16:27 EKG STAT Comment: Oxygen Oxymizer LPM 2 lpm Comment: 04/01/19 18:22 RT Screen per Nursing Assess ONCE Comment: Protocol Order Physician Instructions: Greater than 3 points order RT Admission Screen Reason For Exam: Triggered on Admission Diagnosis: hyperosmolar DKA Diagnosis: hyperosmolar DKA Pneumonia: No Home O2: No Asthma: No CHF: Yes Home CPAP/BIPAP: Yes Home Nebs/MDI: No Total Points: 8 04/01/19 20:45 Respiratory Therapy Assessment ONCE Comment: Diagnosis: hyperosmolar DKA Discharge Exam General Appearance: no apparent distress, alert Neurologic Exam: alert, oriented x 3, cooperative, normal mood/affect, nml cerebellar function, sensation nml, No motor deficits Eye Exam: PERRL, EOMI, eyes nml inspection Ears, Nose, Throat Exam: normal ENT inspection, pharynx normal, moist mucous membranes Neck Exam: normal inspection, non-tender, supple, full range of motion Respiratory Exam: normal breath sounds, lungs clear, No respiratory distress Cardiovascular Exam: regular rate/rhythm, normal heart sounds Gastrointestinal/Abdomen Exam: soft, No tenderness, No mass Male Genitalia Exam: deferred Rectal Exam: deferred Back Exam: normal inspection, normal range of motion, No CVA tenderness, No vertebral tenderness Extremity Exam: normal inspection, normal range of motion Skin Exam: normal color, warm, dry Final Diagnosis/Problem List - Final Discharge Diagnosis/Problem (1) Diabetic hyperosmolar non-ketotic state Current Visit: Yes Status: Resolved Assessment & Plan: Chief Complaint Diagnosis hyperosmolar DKA Allergies Allergy/AdvReac Type Severity Reaction Status Date / Time No Known Drug Allergies Allergy Unverified 11/19/13 18:09 Vital Signs (Last 24 hours) Temp Pulse Resp BP Pulse Ox 04/02/19 07:53 75 04/02/19 07:10 97.8 F 82 20 96/69 82 L 04/02/19 04:00 98.2 F 72 13 112/93 99 04/02/19 02:56 98 04/02/19 00:06 97.7 F 64 14 92/56 95 04/01/19 23:55 66 04/01/19 21:00 70 95/64 04/01/19 20:46 77 16 98 04/01/19 20:43 98 04/01/19 20:00 97.4 F 74 14 70/58 95 04/01/19 17:32 97.7 F 77 15 126/86 97 04/01/19 17:14 94 L Home Medications Medication Instructions Recorded Confirmed Last Taken Type Amlodipine Besylate [Norvasc] 2.5 mg PO DAILY 04/01/19 04/01/19 04/01/19 History Apixaban [Eliquis] 5 mg PO BID 04/01/19 04/01/19 04/01/19 History Carvedilol 6.25 mg [Coreg 6.25 6.25 mg PO BID 04/01/19 04/01/19 04/01/19 History MG] Ergocalciferol (Vitamin D2) 50,000 unit PO Q7D 04/01/19 04/01/19 03/27/19 History [Vitamin D2] Gabapentin 300 mg PO TID 04/01/19 04/01/19 04/01/19 History Pravastatin Sodium 20 mg PO DAILY 04/01/19 04/01/19 04/01/19 History Sitagliptin Phosphate [Januvia] 100 mg PO DAILY 04/01/19 04/01/19 04/01/19 History lisinopriL [Lisinopril] 40 mg PO DAILY 04/01/19 04/01/19 04/01/19 History Current Medications Generic Name Dose Route Start Last Admin Trade Name Freq PRN Reason Stop Dose Admin Acetaminophen 650 mg 04/01/19 16:29 Feverall 650 Mg [place] 05/01/19 16:28 Q4H PRN PRN PAIN AND/OR FEVER Acetaminophen 650 mg 04/01/19 22:05 04/01/19 22:07 Tylenol 325 Mg PO 05/01/19 22:04 650 mg Q4H PRN PRN Administration PAIN AND/OR FEVER Amlodipine Besylate 2.5 mg 04/02/19 10:00 Norvasc 5 Mg PO 05/02/19 09:59 QAM [facility] Apixaban 5 mg 04/01/19 22:00 04/01/19 22:00 Eliquis 2.5 Mg Tablet PO 05/01/19 21:59 5 mg BID [facility] Administration Carvedilol 6.25 mg 04/01/19 22:00 04/01/19 21:59 Coreg 6.25 Mg PO 05/01/19 21:59 Not Given BID [facility] Ergocalciferol 50,000 unit 04/03/19 10:00 Vitamin D2 PO 05/03/19 09:59 Q7D [facility] Gabapentin 300 mg 04/01/19 22:00 04/01/19 22:00 Neurontin 300 Mg PO 05/01/19 21:59 Not Given TID [facility] Hydrochlorothiazide 25 mg 04/02/19 10:00 Hydrodiuril 25 Mg PO 05/02/19 09:59 DAILY [facility] Insulin Human Regular 100 101 mls @ 16.23 mls/hr 04/01/19 16:33 04/02/19 03: 58 units/ Sodium Chloride IV 05/01/19 16:32 0 units/kg/hr .Q6H14M PRN 0 mls/hr DKA/HYPERGYCEMIA Titration Protocol 0.1 UNITS/KG/HR Potassium Chloride/Dextrose/Sod Cl 1,000 mls @ 150 mls/hr 04/02/19 01:30 10/12 01:29 D5w/0.45ns W/ 20meq Kcl 1000 Ml IV 05/02/19 01:29 150 mls/hr .Q6H40M [facility] Administration Insulin Human Lispro 0 unit 04/02/19 01:36 Humalog SQ 05/02/19 01:35 UD PRN HYPERGLYCEMIA Lisinopril 40 mg 04/02/19 10:00 Zestril 20 Mg PO 05/02/19 09:59 DAILY [facility] Simvastatin 20 mg 04/01/19 22:00 04/01/19 22:01 Zocor 20mg PO 05/01/19 21:59 20 mg HS [facility] Administration Sitagliptin Phosphate 100 mg 04/02/19 10:00 Januvia 50 Mg PO 05/02/19 09:59 DAILY [facility] Discontinued Medications Generic Name Dose Route Start Last Admin Trade Name Freq PRN Reason Stop Dose Admin Sodium Chloride 1,000 mls @ 999 mls/hr 04/01/19 16:29 04/01/19 17:19 Sodium Chloride 0.9% 1000 Ml IV 04/01/19 17:29 999 mls/hr .Q1H1M STA Administration Sodium Chloride 1,000 mls @ 150 mls/hr 04/01/19 18:45 04/01/19 19:33 Sodium Chloride 0.9% 1000 Ml IV 05/01/19 18:44 150 mls/hr .Q6H40M [facility] Administration Sodium Chloride 1,000 mls @ 999 mls/hr 04/01/19 20:05 02/07/20 20:08 Sodium Chloride 0.9% 1000 Ml IV 04/01/19 21:05 999 mls/hr .Q1H1M STA Administration Insulin Glargine 20 unit 04/02/19 01:30 04/02/19 01:29 Lantus Insulin SQ 04/02/19 01:31 20 unit ONCE ONE Administration Intake & Output (Last 24 hours) 03/30/19 03/31/19 04/01/19 04/02/19 11:59 11:59 11:59 11:59 Intake Total 3806 Output Total 1300 Balance 2506 Weight 160.7 kg Laboratory Results (Last 24 hours) 04/02/19 04/02/19 04/02/19 03:25 02:13 00:56 WBC RBC Hgb Hct MCV MCH MCHC RDW Plt Count MPV Sodium 132 L Potassium 4.3 Chloride 96 L Carbon Dioxide 26 Anion Gap 13.3 BUN 43 H Creatinine 1.77 H Estimated GFR 42.4 Glucose 135 H 179 H 245 H Hemoglobin A1c Calcium 9.0 Phosphorus Magnesium Total Bilirubin Direct Bilirubin AST ALT Alkaline Phosphatase Serum Total Protein Albumin Urine Color Urine Appearance Urine pH Ur Specific Bishop Urine Protein Urine Ketones Urine Blood Urine Nitrite Urine Bilirubin Urine Urobilinogen Ur Leukocyte Esterase Urine WBC (Auto) Urine RBC (Auto) U Epithel Cells (Auto) Urine Bacteria (Auto) Urine Culture Reflexed Urine Glucose 04/01/19 04/01/19 04/01/19 23:10 22:00 21:02 WBC RBC Hgb Hct MCV MCH MCHC RDW Plt Count MPV Sodium Potassium Chloride Carbon Dioxide Anion Gap BUN Creatinine Estimated GFR Glucose 292 H 278 H 259 H Hemoglobin A1c Calcium Phosphorus Magnesium Total Bilirubin Direct Bilirubin AST ALT Alkaline Phosphatase Serum Total Protein Albumin Urine Color Urine Appearance Urine pH Ur Specific Bishop Urine Protein Urine Ketones Urine Blood Urine Nitrite Urine Bilirubin Urine Urobilinogen Ur Leukocyte Esterase Urine WBC (Auto) Urine RBC (Auto) U Epithel Cells (Auto) Urine Bacteria (Auto) Urine Culture Reflexed Urine Glucose 04/01/19 04/01/19 04/01/19 20:12 19:09 18:12 WBC RBC Hgb Hct MCV MCH MCHC RDW Plt Count MPV Sodium Potassium Chloride Carbon Dioxide Anion Gap BUN Creatinine Estimated GFR Glucose 374 H 513 H* 619 H* Hemoglobin A1c Calcium Phosphorus Magnesium Total Bilirubin Direct Bilirubin AST ALT Alkaline Phosphatase Serum Total Protein Albumin Urine Color Urine Appearance Urine pH Ur Specific Bishop Urine Protein Urine Ketones Urine Blood Urine Nitrite Urine Bilirubin Urine Urobilinogen Ur Leukocyte Esterase Urine WBC (Auto) Urine RBC (Auto) U Epithel Cells (Auto) Urine Bacteria (Auto) Urine Culture Reflexed Urine Glucose 04/01/19 04/01/19 04/01/19 18:03 16:45 16:45 WBC RBC Hgb Hct MCV MCH MCHC RDW Plt Count MPV Sodium 128 L Potassium 5.1 Chloride 89 L Carbon Dioxide 24 Anion Gap 20.7 H BUN 42 H Creatinine 1.70 H Estimated GFR 44.4 Glucose 696 H* Hemoglobin A1c > 14.00 H Calcium 9.6 Phosphorus 4.6 H Magnesium 1.7 Total Bilirubin 2.00 H Direct Bilirubin 0.3 AST 18 ALT 14 Alkaline Phosphatase 105 Serum Total Protein 7.8 Albumin 4.3 Urine Color STRAW Urine Appearance CLEAR Urine pH 5.0 Ur Specific Bishop 1.021 Urine Protein NEGATIVE Urine Ketones NEGATIVE Urine Blood NEGATIVE Urine Nitrite NEGATIVE Urine Bilirubin NEGATIVE Urine Urobilinogen NEGATIVE Ur Leukocyte Esterase NEGATIVE Urine WBC (Auto) NONE Urine RBC (Auto) NONE U Epithel Cells (Auto) NONE Urine Bacteria (Auto) NONE Urine Culture Reflexed NO Urine Glucose >=500 04/01/19 04/01/19 16:45 16:45 WBC 7.8 RBC 4.25 Hgb 13.5 Hct 39.2 L MCV 92.2 MCH 31.8 MCHC 34.4 RDW 12.9 Plt Count 89 L MPV 13.9 H Sodium Potassium Chloride Carbon Dioxide Anion Gap BUN Creatinine Estimated GFR Glucose 696 H* Hemoglobin A1c Calcium Phosphorus Magnesium Total Bilirubin Direct Bilirubin AST ALT Alkaline Phosphatase Serum Total Protein Albumin Urine Color Urine Appearance Urine pH Ur Specific Bishop Urine Protein Urine Ketones Urine Blood Urine Nitrite Urine Bilirubin Urine Urobilinogen Ur Leukocyte Esterase Urine WBC (Auto) Urine RBC (Auto) U Epithel Cells (Auto) Urine Bacteria (Auto) Urine Culture Reflexed Urine Glucose Orders (Last 24 hours) Category Date Time Status Up [place] TOLERATED Activity 04/01/19 16:32 Active ACCUCHECK [Accucheck] Q4H Care 04/02/19 04:[address] in Observation ROUTINE Care 04/01/19 16:29 Active Chicken And Fish Cleaner/Discharge Plan Cons 04/01/19 18:22 Active 1800 Calorie ADA Diet 04/01/19 Dinner Active Nutritional Admission Screen Diet 04/01/19 18:22 Active CHEST 2 VIEWS (PA AND LAT) Stat Exams 04/01/19 19:10 Completed BMP Routine Lab 04/02/19 00:56 Completed BMP/HFII Stat Lab 04/01/19 16:45 Completed CBC Stat Lab 04/01/19 16:45 Completed Glucose Q1H Lab 04/01/19 18:12 Completed Glucose Q1H Lab 04/01/19 19:09 Completed Glucose Q1H Lab 04/01/19 20:12 Completed Glucose Q1H Lab 04/01/19 21:02 Completed Glucose Q1H Lab 04/01/19 22:00 Completed Glucose Q1H Lab 04/01/19 23:10 Completed Glucose Routine Lab 04/02/19 02:13 Completed Glucose Routine Lab 04/02/19 03:25 Completed Glucose Stat Lab 04/01/19 16:45 Completed HEMOGLOBIN A1C Urgent Lab 04/01/19 16:45 Completed MAGNESIUM Stat Lab 04/01/19 16:45 Completed PHOSPHOROUS Stat Lab 04/01/19 16:45 Completed UA W/RFX UR CULTURE Stat Lab 04/01/19 18:03 Completed Acetaminophen 325 mg [Tylenol 325 mg] Med 04/01/19 22:05 Active 650 mg PO Q4H PRN PRN Acetaminophen 650 mg [Feverall 650 mg] Med 04/01/19 16:29 Active 650 mg [place] Q4H PRN PRN Amlodipine Besylate 5 mg [Norvasc 5 mg] Med 04/02/19 10:00 Active 2.5 mg PO QAM Apixaban [Eliquis 2.5 mg Tablet] Med 04/01/19 22:00 Active 5 mg PO BID Carvedilol 6.25 mg [Coreg 6.25 MG] Med 04/01/19 22:00 Active 6.25 mg PO BID D5w-0.45NACL W/ 20Meq KCl [D5W/0.45NS W/ 20mEq KCl 1000 Med 04/02/19 01:30 Active ML] 1,000 ml IV 150 mls/hr Ergocalciferol (Vitamin D2) [Vitamin D2] Med 04/03/19 10:00 Active 50,000 unit PO Q7D Gabapentin 300 mg [Neurontin 300 mg] Med 04/01/19 22:00 Active 300 mg PO TID Hydrochlorothiazide 25 mg [hydroDIURIL 25 MG] Med 04/02/19 10:00 Active 25 mg PO DAILY Insulin Glargine [Lantus Insulin] Med 04/02/19 01:30 Discontinued 20 unit SQ ONCE ONE Insulin Lispro [Humalog] Med 04/02/19 01:36 Active See Dose Instructions SQ UD PRN Lisinopril 20 mg [Zestril 20 MG] Med 04/02/19 10:00 Active 40 mg PO DAILY NaCl 0.9% 1000 ml [Sodium Chloride 0.9% 1000 ML] 1,000 Med 04/01/19 18:45 Discontinued ml IV 150 mls/hr NaCl 0.9% 1000 ml [Sodium Chloride 0.9% 1000 ML] 1,000 Med 04/01/19 16:29 Discontinued ml IV 999 mls/hr NaCl 0.9% 1000 ml [Sodium Chloride 0.9% 1000 ML] 1,000 Med 04/01/19 20:05 Discontinued ml IV 999 mls/hr NaCl 0.9% 100Ml [Sodium Chloride 0.9% 100 ML IVPB] 100 Med 04/01/19 16:33 Active ml Insulin Reg Human Rec [Novolin R Insulin (For Drips)* *] 100 units IV 0.1 units/kg/hr Simvastatin 20Mg [Zocor 20Mg] Med 04/01/19 22:00 Active 20 mg PO HS Sitagliptin Phosphate 50 MG [Januvia 50 MG] Med 04/02/19 10:00 Active 100 mg PO DAILY EKG STAT RT 04/01/19 16:27 Completed Oxygen Oxymizer LPM 2 lpm RT 04/01/19 16:27 Active Pulse Oximetry .continuos RT 04/01/19 17:14 Active RT Screen per Nursing Assess ONCE RT 04/01/19 18:22 Completed Respiratory Therapy Assessment ONCE RT 04/01/19 20:45 Active Patient Care Notes (Last 24 hours) 04/02/19 08:24 Nursing Note by Anurag Richards Dr. Patient to be discharge home today with diabetic teaching. Initialized on 04/02/19 08:24 - END OF NOTE 04/02/19 08:11 Nursing Note by Morelia Joseph DR HERE TO SEE PT. UPDATED ON SUGARS THROUGHOUT NIGHT, LANTUS 20 GIVEN THIS AM WHEN INSULIN DRIP STOPPED. CURRENT ACCUCHECK 360. DR JACOBS ORDERED 40 UNITS OF LANUTUS THIS AM, THEN CONTINUE DAILY. D/C PT HOME AFTER BREAKFAST WITH DIABETIC AND INSULIN EDUCATION. Initialized on 04/02/19 08:11 - END OF NOTE 04/02/19 03:58 Nursing Note by Radha Escalera LATE ENTRY: 04/02/19 0300 insulin gtt d/c Initialized on 04/02/19 03:58 - END OF NOTE 04/02/19 01:19 Nursing Note by Radha Escalera 20 units lantus SQ given per written order, gtt to be d/c 2 hrs after Lantus started. Initialized on 04/02/19 01:19 - END OF NOTE 04/02/19 01:13 Nursing Note by Radha Escalera insulin gtt not adjusted for midnight due to lab not drawing until 0050. 0100 glucose result 245 gtt increased to 6 ml/h. Initialized on 04/02/19 01:13 - END OF NOTE 04/01/19 20:12 Nursing Note by Radha Escalera notified patient BP 70/52 automatic, manual BP 70/55. Patient is not symptomatic at this time. New orders received to administer 1L bolus NS and closely monitor BP. Initialized on 04/01/19 20:12 - END OF NOTE Code(s): E11.00 - TYPE 2 DIAB W HYPROSM W/O NONKET HYPRGLY-HYPROS COMA ([facility]) (2) Diabetes mellitus type 2 Current Visit: Yes Status: Chronic Code(s): E11.9 - TYPE 2 DIABETES MELLITUS WITHOUT COMPLICATIONS (3) Hyperglycemia Current Visit: Yes Status: Resolved Code(s): R73.9 - HYPERGLYCEMIA, UNSPECIFIED - Discharge Discharge Date: 04/02/19 Disposition: Home, Self-Care Condition: Stable Prescriptions: New Insulin Glargine,Hum.rec.anlog [Lantus Solostar] 40 unit SQ EVENING MEAL #30 ml Continue Hydrochlorothiazide 25 mg [hydroDIURIL 25 MG] 25 mg PO DAILY Ergocalciferol (Vitamin D2) [Vitamin D2] 50,000 unit PO Q7D Carvedilol 6.25 mg [Coreg 6.25 MG] 6.25 mg PO BID lisinopriL [Lisinopril] 40 mg PO DAILY Sitagliptin Phosphate [Januvia] 100 mg PO DAILY Pravastatin Sodium 20 mg PO DAILY Gabapentin 300 mg PO TID Apixaban [Eliquis] 5 mg PO BID Amlodipine Besylate [Norvasc] 2.5 mg PO DAILY Instructions: Type 2 Diabetes, Insulin Injection, Diabetes Diet , Treatment for Type 2 Diabetes, Insulin Glargine, Diabetes and Diet, Diabetes in Older Adults Additional Instructions: MAKE A FOLLOW UP APPOINTMENT WITH DR JACOBS FOR WEEK OF March. CONINTUE CHECKING BLOOD SUGARS AT HOME, KEEP TRACK OF VALUES AND TAKE TO DR APPOINTMENT WITH YOU. Follow up with: REYNA JACOBS MD [Primary Care Provider] - 1 Week
[2019-04-02] MEDS ORDERED: NovoLOG Insulin SQ PRN (08:45)
[2019-04-02 09:00] VITALS: BP 124/75; O2SAT 91
[2019-04-02] MEDS: NEURONTIN 300 MG PO SCH (09:10)
[2019-04-02] MEDS: ELIQUIS 2.5 MG TABLET PO SCH (09:10)
[2019-04-02] MEDS: Coreg 6.25 MG PO SCH (09:11)
[2019-04-02] MEDS ORDERED: NORVASC 5 MG PO SCH (10:00)
[2019-04-02] MEDS ORDERED: NON-FORMULARY ITEM (Sitagliptin Phosphate [Januvia] 100 MG) PO SCH (10:00)
[2019-04-02] MEDS ORDERED: NON-FORMULARY ITEM (Pravastatin Sodium [Pravastatin Sodium] 20 MG) PO SCH (10:00)
[2019-04-02] MEDS ORDERED: Januvia 50 MG PO SCH (10:00)
[2019-04-02] MEDS ORDERED: NON-FORMULARY ITEM (Amlodipine Besylate [Norvasc] 2.5 MG) PO SCH (10:00)
[2019-04-02] MEDS ORDERED: hydroDIURIL 25 MG PO SCH (10:00)
[2019-04-02] MEDS ORDERED: NON-FORMULARY ITEM (Lisinopril [Lisinopril] 40 MG) PO SCH (10:00)
[2019-04-02] MEDS ORDERED: Zestril 20 MG PO SCH (10:00)
[2019-04-03] MEDS ORDERED: VITAMIN D2 PO SCH (10:00)
== END 2019-04-02 09:30 | disposition home or self-care (01) ==
LOC: ICU 16:12 → UNDODISOB 04-02 09:30
PROVIDERS: ADMIT General Practice; ATTEND General Practice
DX: E11.00 Type 2 diabetes mellitus with hyperosmolarity without nonketotic hyperglycemic-hyperosmolar coma (NKHHC) (principal); E11.65 Type 2 diabetes mellitus with hyperglycemia; E11.22 Type 2 diabetes mellitus with diabetic chronic kidney disease; E11.21 Type 2 diabetes mellitus with diabetic nephropathy; I10 Essential (primary) hypertension; Z79.899 Other long term (current) drug therapy; Z79.01 Long term (current) use of anticoagulants
CPT/HCPCS: 36415; 71046; 80048; 80076; 81001; 82947; 82962; 83036; 83735; 84100; 85027; 93005; 93268; 94762; G0378; J1815; A9270-GY